=== PATIENT | male | born 1985 | race Caucasian/White ===

== ENCOUNTER 2017-01-31 23:07 | Emergency (ER) | payer MEDICAID ==
[~2017-01-31] VITALS: Ht 177.8 cm; Wt 90.7 kg
[2017-01-31 23:10] VITALS: BP 121/84
--- NOTE | 2017-01-31 23:31 | NUR ---
Pt to bed 6.
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
--- NOTE | 2017-02-01 01:25 | NUR ---
Patient discharged with v/s stable. Written and verbal after care instructions given and explained. Patient alert, oriented and verbalized understanding of instructions. Ambulatory with steady gait. All questions addressed prior to discharge. ID band removed. Patient advised to follow up with PMD. Rx of FLEXIRIL 10MG ONE TAB PO EVERY 8HRS PO PRN FOR MUSCLE PAIN; IBUPROFEN 800MG ONE TAB TID PRN FOR PAIN given. Patient educated on indication of medication including possible reaction and side effects. Opportunity to ask questions provided and answered.
[2017-02-01 01:29] VITALS: BP 121/84
== END 2017-02-01 01:25 | disposition home or self-care (01) ==
LOC: MED 23:07
DX: S16.1XXA Strain of muscle, fascia and tendon at neck level, initial encounter (principal); F17.200 Nicotine dependence, unspecified, uncomplicated; V43.52XA Car driver injured in collision with other type car in traffic accident, initial encounter; Y93.I9 Activity, other involving external motion; Y92.488 Other paved roadways as the place of occurrence of the external cause; Y99.8 Other external cause status
CPT/HCPCS: 72125; 99284